=== PATIENT | male | born 1995 | race Caucasian/White ===

== ENCOUNTER 2016-07-11 11:24 | Emergency (ER) | payer BC ==
[~2016-07-11] VITALS: Ht 177.8 cm; Wt 80.1 kg
[2016-07-11 11:27] VITALS: TEMP 36.6; Ht 177.8 cm; Wt 80.1 kg
[2016-07-11] MEDS ORDERED: SERT-234 PO (12:13)
[2016-07-11 12:30] LABS: BASO % 0.3 %; BASO ABS # 0.02 K/uL (0-0.2); COMPLETE YES; EOS % 0.9 %; HEMATOCRIT 46.5 % (42-52); IG% 0.2 %; LYMPH % 19.9 %; LYMPH ABS # 1.16 K/uL (1.2-3.4); MEAN CORPUSCULAR HEMOGLOBIN 28.8 pg (25-34); MEAN CORPUSCULAR HGB CONC 33.5 g/dl (32-36); MEAN PLATELET VOLUME 12.3 fL (7.4-10.4); NEUT % 66.7 %; PLATELET COUNT 187 K/uL (130-400); RED BLOOD COUNT 5.41 M/uL (4.7-6.1); WHITE BLOOD COUNT 5.82 K/uL (4.8-10.8)
[2016-07-11 12:48] LABS: CALCIUM 9.9 mg/dl (8.5-10.1); POTASSIUM 3.8 mmol/L (3.5-5.1)
--- NOTE | 2016-07-11 14:33 | EMERGENCY ROOM VISIT NOTE ---
History First contact with patient: 11:33 Chief Complaint: FACIAL PAIN/INJURY Stated Complaint: MUMPS?/REF BY [facility] [employer] History of Present Illness The patient is a 21 year old male who presents to the Emergency Room via private vehicle with complaints of "mumps/referral via [facility] [employer]". The patient states that he began with swelling in the left jaw this morning when he woke up just below the left ear. He notes region is sore and he rates the pain as a 2-3/10. He previously did have neck stiffness however it is subsided over the past week. He denies any recent injury, trauma or having this before. He is vaccinations are up-to-date. He denies any exposure to individuals that he is aware of with a mumps. He denies any chest pain, shortness of breath, fevers , chills, abdominal pain. He denies any testicular pain. He denies any sore throat, trouble breathing. Review of Systems A complete 10-point Review of Systems was discussed with the patient, with pertinent positives and negatives listed in the History of Present Illness. All remaining Review of Systems questions can be considered negative unless otherwise specified. Past Medical/Surgical History No Pertinent past medical history. Family History No pertinent family history. Social History Smoking Status: Never Smoker Social History: Patient is a [employer] student. Current/Historical Medications Scheduled Sertraline (Zoloft), 100 MG PO DAILY Allergies Coded Allergies: No Known Allergies (Unverified , 07/11/16) Physical Exam Vital Signs Date Time Temp Pulse Resp B/P Pulse Ox O2 Delivery O2 Flow Rate FiO2 07/11/16 14:40 79 18 131/66 97 07/11/16 14:32 79 18 131/66 97 Room Air 07/11/16 12:56 74 18 126/63 98 Room Air 07/11/16 11:27 36.6 84 16 139/66 96 Room Air Physical Exam VITAL SIGNS - Vital signs and nursing notes were reviewed. Patient is afebrile , normotensive, non-tachycardic and is saturating well on room air 96%. GENERAL -21-year-old male appearing his stated age who is in no acute distress. Communicates well with provider and answers questions appropriately. SKIN - Without rashes. No petechial rashes. HEAD - NC/AT. No evidence of trauma EYES - PERRL with EOMI bilaterally. Sclera anicteric. Palpebral conjunctiva pink and moist with no injection noted. EARS - No deformities of external structures noted on gross examination bilaterally. No pain elicited with palpation of the tragus bilaterally. External auditory canals without discharge or otorrhea. Tympanic membranes pearly klein without retraction or bulging. No fluid or purulent material visualized behind the TM. Handle of malleus, umbo, cone of light, pars tensa/ flaccid all easily visualized. NOSE - Midline and without cyanosis. No epistaxis or purulent drainage noted. Septum midline without deviation or septal hematoma noted. MOUTH/OROPHARYNX - Without perioral cyanosis. Buccal mucosa pink and moist and without leukoplakia. Tongue midline with equal elevation of palate bilaterally. No tonsillar hypertrophy, erythema, or exudates noted. Good dentition noted. No intraoral edema. NECK - Neck with FROM. Supple to palpation. No lymphadenopathy noted. No nuchal rigidity. There is evidence of parotid gland enlargement, with edema just inferior to the left ear at the location of the angle of the mandible. This region extends into the lateral portion of the left neck. There is no evidence of anterior cervical lymphadenopathy. LUNGS - Chest wall symmetric without accessory muscle use, intercostals retractions, or central cyanosis. Normal vesicular breath sounds CTA B/L. No wheezes, rales, or rhonchi appreciated. CARDIAC - RRR with S1/S2. No murmur, rubs, or gallops appreciated. Medical Decision & Procedures Laboratory Results 07/11/16 12:05 Red Blood Count 5.41, Mean Corpuscular Volume 86.0, Mean Corpuscular Hemoglobin 28.8, Mean Corpuscular Hemoglobin Concent 33.5, Mean Platelet Volume 12.3, Neutrophils (%) (Auto) 66.7, Lymphocytes (%) (Auto) 19.9, Monocytes (%) (Auto) 12.0, Eosinophils (%) (Auto) 0.9, Basophils (%) (Auto) 0.3, Neutrophils # (Auto ) 3.88, Lymphocytes # (Auto) 1.16, Monocytes # (Auto) 0.70, Eosinophils # (Auto ) 0.05, Basophils # (Auto) 0.02 07/11/16 12:05 Test 07/11/16 12:05 07/11/16 13:00 White Blood Count 5.82 K/uL (4.8-10.8) Red Blood Count 5.41 M/uL (4.7-6.1) Hemoglobin 15.6 g/dL (14.0-18.0) Hematocrit 46.5 % (42-52) Mean Corpuscular Volume 86.0 fL (80-100) Mean Corpuscular Hemoglobin 28.8 pg (25-34) Mean Corpuscular Hemoglobin Concent 33.5 g/dl (32-36) Platelet Count 187 K/uL (130-400) Mean Platelet Volume 12.3 fL (7.4-10.4) Neutrophils (%) (Auto) 66.7 % Lymphocytes (%) (Auto) 19.9 % Monocytes (%) (Auto) 12.0 % Eosinophils (%) (Auto) 0.9 % Basophils (%) (Auto) 0.3 % Neutrophils # (Auto) 3.88 K/uL (1.4-6.5) Lymphocytes # (Auto) 1.16 K/uL (1.2-3.4) Monocytes # (Auto) 0.70 K/uL (0.11-0.59) Eosinophils # (Auto) 0.05 K/uL (0-0.5) Basophils # (Auto) 0.02 K/uL (0-0.2) RDW Standard Deviation 42.7 fL (36.4-46.3) RDW Coefficient of Variation 13.5 % (11.5-14.5) Immature Granulocyte % (Auto) 0.2 % Immature Granulocyte # (Auto) 0.01 K/uL (0.00-0.02) Anion Gap 9.0 mmol/L (3-11) Est Creatinine Clear Calc Drug Dose 120.7 ml/min Estimated GFR () 124.1 Estimated GFR (Non- 107.1 BUN/Creatinine Ratio 21.0 (10-20) Calcium Level 9.9 mg/dl (8.5-10.1) Influenza Type A (RT-PCR) Neg for Influ A (NEG) Influenza Type A Antigen Neg for Influ A (NEG) Influenza Type B Antigen Neg for Influ B (NEG) Influenza Type B (RT-PCR) Neg for Influ B (NEG) Medical Decision Patient was seen and evaluated as above. Patient comes to us referred by [facility]. There certainly is clinical concern for the mumps. For this region precautions were taken, and masks were worn by the patient and providers. IV access was initiated and the above workup was performed. I did have difficulty finding the order set in the system regarding the buccal PCR swab as well as urine. The charge nurse, Adonay Bloom, was able to speak with the lab and subsequently wrote the orders on a downtime sheet. There should be a total of 3 tests for the mumps of which will be submitted for this patient. In addition basic labs were also obtained as well as influenza. CBC reveals no leukocytosis or anemia. Lymphocytes are low at 1.16. Electrolytes are unremarkable. BUN is elevated at 21. Patient was negative for the flu. The mumps IgG and IgM are pending as well as the oral and urine PCR results. Because the patient presents with only minimal pain with unilateral product gland enlargement, I do not believe that additional studies are warranted nor do I suspect that a CT scan is also warranted. Benefits versus risk was discussed with the patient obtaining a CT scan and the decision was made to not scan at this time. The patient will be discharged home with close follow-up with [facility]. He was educated to wear a mask at all times and to make public appearances until he follows up with [facility] and receives the results of the mumps testing. He is to refrain from attending class. He will be given a excuse. He was given masks to help prevent spread of infection. I do believe the patient is stable for discharge at this time, and the charge nurse, Adonay Bloom sent an email to our infectious disease coordinators who are to initiate and notify [facility] health. At this time I do believe it is appropriate to discharge the patient and treat him as if he does have the mumps, as in this case the benefit outweighs the risk. Patient was educated upon worrisome symptoms which to return, had questions prior to discharge and was discharged home in good condition. He is to call [facility] first thing Wednesday morning. In evaluation treatment of this patient the following differential diagnoses were entertained: Mumps, tonsillar enlargement, cervical lymphadenopathy, jaw fracture, trauma, thyroglossal duct cyst, among others. Impression Primary Impression: Parotid gland enlargement Additional Impression: symptoms of mumps Departure Information Dispostion Home / Self-Care Condition GOOD Referrals [facility] (PCP) Patient Instructions My [facility] Additional Instructions You were seen in the emergency Department for left-sided facial swelling. At this time it is highly suspected that you are experiencing mumps. For this reason it is recommended that you wear a mask at all times to cover your mouth we provided you, to not participate in public activities, to rest at your residence and to follow-up with [facility] services first thing Wednesday. Please do not attend class until the results of your mumps return and at that point you will need to follow-up with [facility] services. He will be notified if your mumps are positive. Please consume adequate amounts of water. Please return with any worsening or new/concerning symptoms. As we discussed this is highly contagious and it is important to protect yourself and others. As we discussed your BUN was slightly elevated, it is likely secondary to dehydration. Please return to the emergency department with any new/concerning symptoms. Problem Qualifiers
[2016-07-11 14:40] VITALS: BP 131/66; PULSE 79; O2SAT 97
[2016-07-11 15:08] LABS: INFLUENZA A PCR Neg for Influ A (NEG); INFLUENZA B PCR Neg for Influ B (NEG)
== END 2016-07-11 14:40 | disposition home or self-care (01) ==
LOC: C.EDB 11:27 → C.EDC 14:40
DX: R59.0 Localized enlarged lymph nodes (principal); Z79.899 Other long term (current) drug therapy